=== PATIENT | male | born 1985 | race Caucasian/White ===

== ENCOUNTER → 2019-12-06 | Day surgery (SDC) | payer OTHER ==
[~2019-12-06] MED LIST: ETOMIDATE 2 MG/ML 10 ML INJ IV ONE; GLUCAGON FOR INJ 1 MG VIAL ONE; HYOSCYAMINE 0.125 MG TAB ONE; PROPOFOL IV EMULSION 10 MG/ML 20 ML VIAL ONE
[2019-12-06 18:20] VITALS: BP 128/72
--- NOTE | 2019-12-06 18:42 | Operative Report ---
DATE OF PROCEDURE: 12/06/2019 SURGEON: Blaine Hernandez MD PROCEDURE: Colonoscopy with biopsy. INDICATIONS FOR COLONOSCOPY: Rectal bleeding. MEDICATIONS: The patient was done under MAC, please see anesthesiologist's note. PROCEDURE IN DETAIL: With the patient in the left lateral decubitus position, a flexible fiberoptic Olympus colonoscope was inserted into the rectum with ease and advanced all the way to the cecum. It was then withdrawn slowly. Mucosa overlying the cecum, ascending colon, transverse, descending, and sigmoid colon appeared to be within normal limits. An ulcerated distal rectum was noted without active bleeding. Biopsies were obtained. The scope was then retroflexed into the distal rectum and the area around the dentate line revealed similar inflammatory inflammation as the distal rectum and no internal hemorrhoids were noted. The scope was then straightened out and it was subsequently withdrawn after securing an adequate stool specimen that was sent for the appropriate stool studies. The patient tolerated the procedure well. IMPRESSION: Ulcerated distal rectum biopsies. PLAN: Follow up histology. Check IBD panel, check CRP, and check sedimentation rate. Initiate Canasa suppositories 1000 mg at bedtime. MD EMANUEL Mendoza/CHRISTOPHER /[id number]
== END | disposition home or self-care (01) ==
LOC: OR 13:26 → EDSEX 15:00
PROVIDERS: ATTEND Internal Medicine Gastroenterology
DX: K92.1 Melena (principal); K62.6 Ulcer of anus and rectum; K62.89 Other specified diseases of anus and rectum; F41.9 Anxiety disorder, unspecified; Z01.812 Encounter for preprocedural laboratory examination; Z11.59 Encounter for screening for other viral diseases
CPT/HCPCS: 36415; 45380; 83630; 83993; 85651; 86140; 86256; 86671; 87045; 87177; 87328; 87493; J1610; J2704; U0002